=== PATIENT | female | born 1945 | race Caucasian/White ===

== ENCOUNTER 2024-11-04 10:07 | Outpatient (CLI) | payer MEDICARE ==
[2024-11-04 11:52] LABS: #Basophils 0.05 10x3/uL (0.0-0.2); #Eosinophils 0.08 10x3/uL (0.0-0.7); #Monocytes 0.56 10x3/uL (0.11-0.59); #Neutrophils 3.02 10x3/uL (1.40-6.50); %Basophils 0.9 % (0.0-1.0); %Eosinophils 1.4 % (0.0-10.0); %Lymphocytes 35.6 % (21.0-51.0); %Monocytes 9.7 % (0.0-10.0); %Neutrophils 52.2 % (42.0-75.0); Hematocrit 41.2 % (36.0-47.0); Hemoglobin 13.9 g/dL (12.0-16.0); Mean Corpuscular Hemoglobin 32.1 pg (27.0-31.0); Mean Corpuscular Volume 95.2 fL (78.0-98.0); Platelet Count 294 10x3/uL (130-400); Red Blood Cell (RBC) Count 4.33 mill/uL (4.20-5.40); White Blood Cell (WBC) Count 5.78 10x3/uL (4.8-10.8)
[2024-11-04 11:59] LABS: Bacteria/HPF None Seen HPF (None Seen); Glucose, Urine (Dipstick) Normal (Negative); Leukocyte 25 Leu/uL (Negative); Protein, Urine (Dipstick) Negative (Neg-Trace); RBC/HPF 0-3 HPF (0-3); Specific Gravity, Urine 1.019 (1.002-1.036)
[2024-11-04 12:06] LABS: INR-International Normal Ratio 1.1; Prothrombin Time 13.9 sec (12.0-14.7)
[2024-11-04 12:46] LABS: Anion Gap 13 mmol/L (10-20); BUN (Urea Nitrogen) 15 mg/dL (9.8-20.1); Calc. Creatinine Clearance 0 mL/min (70-130); Calcium 9.2 mg/dL (7.8-10.44); Carbon Dioxide 28 mmol/L (23-31); Chloride 105 mmol/L (98-107); Glucose 90 mg/dL (83-110); Potassium 3.4 mmol/L (3.5-5.1); Sodium 143 mmol/L (136-145)
== END 2024-11-04 10:08 | disposition home or self-care (01) ==
LOC: LABBT 10:07
PROVIDERS: ATTEND Orthopaedic Surgery
DX: Z01.818 Encounter for other preprocedural examination (principal); M17.12 Unilateral primary osteoarthritis, left knee
CPT/HCPCS: 71046; 80048; 81001; 85025; 85610; 87081; 93005; 93010

== ENCOUNTER 2024-11-04 11:28 | Outpatient (CLI) | payer OTHER | END 2024-11-04 11:29 | disposition home or self-care (01) | LOC: CT 11:28 | PROVIDERS: ATTEND Orthopaedic Surgery | DX: M17.12 Unilateral primary osteoarthritis, left knee (principal) ==

== ENCOUNTER 2024-11-11 06:12 | Inpatient (IN) | payer MEDICARE ==
[2024-11-11] MEDS ORDERED: Tranexamic Acid 1,000 MG/10 ML VIAL ONE (06:58)
[2024-11-11] MEDS ORDERED: CEFAZOLIN 2 GM VIAL ONE (06:58)
[2024-11-11] MEDS ORDERED: Vancomycin 1 GM/200 ML (FROZEN) BAG ONE (06:59)
[2024-11-11] MEDS ORDERED: Bupivacaine 0.25% HCL 30 ML VIAL ONE (07:14)
[2024-11-11] MEDS ORDERED: Ropivacaine 0.5% HCl/PF (150 MG/30 ML VIAL) ONE (07:22)
[2024-11-11] MEDS ORDERED: PROPOFOL 20 ML ONE (08:06)
[2024-11-11] MEDS ORDERED: Lidocaine 1% PF 5 ML VIAL ONE (08:06)
[2024-11-11] MEDS ORDERED: Ondansetron PF 4 MG/2 ML Vial ONE (08:06)
[2024-11-11] MEDS ORDERED: Ropivacaine 0.2% 550 ML 550 ML NERVE BLCK SCH (08:15)
[2024-11-11] MEDS ORDERED: Glycopyrrolate 0.2 MG/ML 5 ML SYRINGE ONE (09:18)
[2024-11-11] MEDS ORDERED: diphenhydrAMINE 25 MG CAP PO PRN (10:06)
[2024-11-11] MEDS ORDERED: Ondansetron PF 4 MG/2 ML Vial IVP PRN (10:06)
[2024-11-11] MEDS ORDERED: fentaNYL PF 100 MCG/2 ML SYRINGE ONE ×2 (10:41→11:02)
[2024-11-11 12:03] VITALS: BMI 30.4
[2024-11-11] MEDS: HYDROcodone/Acetaminophen 10/325 mg Tablet PO PRN (13:52)
[2024-11-11] MEDS: Gabapentin 300 MG CAP PO SCH (15:08)
[2024-11-11] MEDS ORDERED: Vancomycin HCl 1.5 GM in Sodium Chloride 0.9% 250 ML 300 ML IVPB SCH (19:00)
[2024-11-11] MEDS: Ferrous Gluconate 324 MG TAB PO SCH (20:22)
[2024-11-11] MEDS: Aspirin 81 mg Enteric Coated Tablet PO SCH (20:22)
[2024-11-11] MEDS: Senokot S 8.6-50 MG TAB PO SCH (20:23)
[2024-11-11] MEDS ORDERED: Aspirin 81 mg Enteric Coated Tablet PO SCH (21:00)
[2024-11-12 06:04] LABS: Hematocrit 43.7 % (36.0-47.0); Hemoglobin 14.0 g/dL (12.0-16.0); Mean Corpuscular Hemoglobin 31.7 pg (27.0-31.0); Mean Corpuscular Volume 99.1 fL (78.0-98.0); Platelet Count 268 10x3/uL (130-400); Red Blood Cell (RBC) Count 4.41 mill/uL (4.20-5.40); White Blood Cell (WBC) Count 8.62 10x3/uL (4.8-10.8)
[2024-11-12] MEDS ORDERED: Aspirin Chewable 81 MG TAB PO SCH (09:00)
[2024-11-12] MEDS: Multivitamin W/ Minerals 1 TAB PO SCH (09:38)
[2024-11-12] MEDS: DULoxetine 30 MG CAP PO SCH (09:38)
[2024-11-12] MEDS: HYDROcodone/Acetaminophen 10/325 mg Tablet PO PRN (09:40)
[2024-11-12] MEDS: Ondansetron PF 4 MG/2 ML Vial IVP PRN (10:49)
[2024-11-13 05:24] LABS: Hematocrit 39.1 % (36.0-47.0); Hemoglobin 12.5 g/dL (12.0-16.0); Mean Corpuscular Hemoglobin 31.7 pg (27.0-31.0); Mean Corpuscular Volume 99.2 fL (78.0-98.0); Platelet Count 258 10x3/uL (130-400); Red Blood Cell (RBC) Count 3.94 mill/uL (4.20-5.40); White Blood Cell (WBC) Count 8.05 10x3/uL (4.8-10.8)
[2024-11-14 05:03] LABS: Hematocrit 35.0 % (36.0-47.0); Hemoglobin 11.6 g/dL (12.0-16.0); Mean Corpuscular Hemoglobin 31.9 pg (27.0-31.0); Mean Corpuscular Volume 96.2 fL (78.0-98.0); Platelet Count 232 10x3/uL (130-400); Red Blood Cell (RBC) Count 3.64 mill/uL (4.20-5.40); White Blood Cell (WBC) Count 7.16 10x3/uL (4.8-10.8)
[2024-11-14] MEDS: Acetaminophen 325 MG TAB PO PRN (08:54)
[2024-11-14 15:58] VITALS: BP 123/72; TEMP 98
== END 2024-11-14 15:59 | disposition home or self-care (01) | DRG 470 ==
LOC: SDC 06:12 → SURG A 10:06 → SDC 11-12 13:09 → SURG A 11-12 13:09
PROVIDERS: ADMIT Orthopaedic Surgery; ATTEND Orthopaedic Surgery
PROC: 0SRD0JZ Replacement of Left Knee Joint with Synthetic Substitute, Open Approach (ICD-10-PCS; principal; 2024-11-11)
PROC: 8E0Y0CZ Robotic Assisted Procedure of Lower Extremity, Open Approach (ICD-10-PCS; 2024-11-11)
DX: M17.12 Unilateral primary osteoarthritis, left knee (principal); I10 Essential (primary) hypertension; M54.9 Dorsalgia, unspecified; Z98.890 Other specified postprocedural states; Z90.49 Acquired absence of other specified parts of digestive tract; Z88.8 Allergy status to other drugs, medicaments and biological substances; Z82.49 Family history of ischemic heart disease and other diseases of the circulatory system; Z79.899 Other long term (current) drug therapy; Z79.82 Long term (current) use of aspirin; Z79.890 Hormone replacement therapy; Z80.49 Family history of malignant neoplasm of other genital organs
CPT/HCPCS: 36415; 85027; A4306; C1713; C1776; C1889; J0665; J2250; J2405; J2704; J2795; J3010; J3373; J7030